=== PATIENT | female | born 1955 ===

== ENCOUNTER 2018-02-08 07:35 | Emergency (ER) | payer MEDICAID ==
[~2018-02-08] VITALS: Ht 154.9 cm; Wt 102.0 kg
[~2018-02-08 07:35] MED LIST: AMITRIPTYLIN25 MG PO; BUSPIRONE5 MG PO; CYCLOBENZAPR10 MG PO; DICLOFENAC SODI75 MG PO; DILANTIN100 MG PO; HALDOL1 M1 PO; LEVAQUIN750 MG OR; LORTAB 5 OR; LORTAB 5/3255 MG PO; MUPIROCIN2 % EX; NAPROSYN500 MG PO; NO HOME MEDS; OXYBUTYNIN5 M1 PO; PHENERGAN SUP12.5 MG PO; PRILOSEC20 MG/CAP PO; REGLAN10 MG OR; TRILEPTAL300 M1 PO; ZOFRAN ODT4 MG OR
[2018-02-08] MEDS ORDERED: BUSPAR5 MG PO (08:05)
[2018-02-08 08:21] LABS: HEMATOCRIT 49.3 % (37.0-47.0); HEMOGLOBIN 16.5 g/dl (12.0-16.0); IMMATURE GRANULOCYTES 0.5 % (0.0-5.0); MEAN CELL VOLUME 88.7 fL CALC (80.0-100.0); MEAN CORPUSCULAR HGB 29.7 pG CALC (26.0-32.0); MEAN CORPUSCULAR HGB CONC 33.5 g/L CALC (32.0-36.0); NEUT# 4.88 thou/uL (2.00-7.15); RED BLOOD COUNT 5.56 mill/uL (4.20-5.60); RED CELL DISTRI WIDTH 13.3 % (11.5-15.5)
[2018-02-08 08:22] LABS: URINE BILIRUBIN - DIPSTICK NEGATIVE (NEGATIVE); URINE COLOR YELLOW; URINE GLUCOSE - DIPSTICK NEGATIVE (NEGATIVE); URINE KETONE NEGATIVE (NEGATIVE); URINE LEUK ESTERASE NEGATIVE (NEGATIVE); URINE NITRITE - DIPSTICK NEGATIVE (Negative); URINE PROTEIN - DIPSTICK NEGATIVE (NEG-TRACE); URINE UROBILINOGEN - DIPSTICK 0.2 E.U./dL (0.2)
[2018-02-08 08:24] LABS: URINE CLARITY CLEAR
[2018-02-08 08:25] LABS: URINE BLOOD DIPSTICK NEGATIVE (NEGATIVE)
[2018-02-08 08:27] LABS: BARBITURATES NEGATIVE (NEGATIVE); COCAINE NEGATIVE (NEGATIVE); METHADONE NEGATIVE (NEGATIVE); OXCYCODONE NEGATIVE (NEGATIVE); TETRAHYDROCANNABIONOL NEGATIVE (NEGATIVE); TRICYLIC ANTIDEPRESSANTS NEGATIVE (NEGATIVE)
[2018-02-08 08:54] LABS: GFR 50 ML/MIN (>=60 (CALC)); GFR FOR AFR.AMER. > 60 ML/MIN (>=60 (CALC))
[2018-02-08 09:19] LABS: ALBUMIN 3.5 g/dL (3.2-5.0); ALKALINE PHOSPHATASE 127 u/l (38-126); ANION GAP 14 (6-22 (CALC)); BILIRUBIN, TOTAL 0.7 mg/dL (0.0-1.4); BUN 20 mg/dL (8-23); BUN/CREATININE RATIO 19 (12-20 (CALC)); CARBON DIOXIDE 18 mmol/l (22-30); CHLORIDE 114 mmol/l (95-108); CREATININE 1.1 mg/dL (0.5-1.0); GFR 50 ML/MIN (>=60 (CALC)); GFR FOR AFR.AMER. > 60 ML/MIN (>=60 (CALC)); LIPASE 133 u/l (23-300); POTASSIUM 4.3 mmol/l (3.5-5.1); SGOT/AST 48 u/l (9-36); SGPT/ALT 37 u/l (11-66); SODIUM 142 mmol/l (137-146); TOTAL PROTEIN 7.3 g/dL (6.3-8.2)
[2018-02-08 09:20] LABS: PHENYTOIN (DILANTIN) < 3 ug/mL (10 - 20)
[2018-02-08] MEDS ORDERED: TORADOL PO (10:06)
[2018-02-08] MEDS ORDERED: BENTYL10 MG PO (10:06)
[2018-02-08 10:20] VITALS: BP 112/55
== END 2018-02-08 10:20 | disposition home or self-care (01) ==
LOC: ED 07:35
PROVIDERS: Emergency Medicine
DX: R10.31 Right lower quadrant pain (principal); F41.9 Anxiety disorder, unspecified; F44.81 Dissociative identity disorder; F17.210 Nicotine dependence, cigarettes, uncomplicated
CPT/HCPCS: Q9967